=== PATIENT | female | born 1980 | race American Indian/Alaskan Native ===

== ENCOUNTER 2016-12-28 14:34 | Emergency (ER) | payer OTHER ==
--- NOTE | 2016-12-28 14:56 | C.PDOC ---
History Of Present Illness <Loan[place] - Last Filed: 12/29/16 01:22> <Anibal Oliveros - Last Filed: 12/29/16 12:21> 36 y/o female presents to the ED for psychiatry evaluation. The patient contacted a credit card community service representative and stated " she wanted to kill herself ".The patient also reports "saying something she should not have done." at bedside, pt denies hi, hallucinations, fevers, cough, n/v/d, urrinary changes, or medical complaints. (Anibal Oliveros) <Gail Cates - Last Filed: 12/29/16 01:22> History Per: Patient History/Exam Limitations: no limitations Onset/Duration Of Symptoms: Hrs Current Symptoms Are (Timing): Still Present <Anibal Oliveros - Last Filed: 12/29/16 12:21> Time Seen by Provider: 12/28/16 14:36 Chief Complaint (Nursing): Psychiatric Evaluation Past Medical History Reviewed: Historical Data, Nursing Documentation, Vital Signs Surgical History: No Surg Hx Family History: States: No Known Family Hx - Social History Hx Alcohol Use: No Hx Substance Use: No - Immunization History Hx Tetanus Toxoid Vaccination: Yes Hx Influenza Vaccination: No Hx Pneumococcal Vaccination: No <Anibal Oliveros - Last Filed: 12/29/16 12:21> Vital Signs: Last Vital Signs Temp 98 F 12/28/16 17:58 Pulse 84 12/29/16 01:37 Resp 16 12/29/16 01:37 BP 132/75 12/29/16 01:37 Pulse Ox 98 12/29/16 01:37 Review Of Systems Except As Marked, All Systems Reviewed And Found Negative. Constitutional: Negative for: Fever, Chills Cardiovascular: Negative for: Chest Pain Respiratory: Negative for: Shortness of Breath Gastrointestinal: Negative for: Nausea, Vomiting <Anibal Oliveros - Last Filed: 12/29/16 12:21> Physical Exam - Physical Exam Appears: Non-toxic, No Acute Distress Skin: Warm, Dry Head: Atraumatic, Normacephalic Eye(s): bilateral: Normal Inspection Oral Mucosa: Moist Neck: Supple Chest: Symmetrical Cardiovascular: Rhythm Regular Respiratory: Normal Breath Sounds, No Rales, No Rhonchi, No Wheezing Gastrointestinal/Abdominal: Soft, Tenderness, No Guarding, No Rebound Extremity: Normal ROM, Capillary Refill (<2sec.) Neurological/Psych: Oriented x3, Normal Speech, Normal Cognition Gait: Steady <Anibal Oliveros - Last Filed: 12/29/16 12:21> ED Course And Treatment - Laboratory Results Result Diagrams: 12/28/16 16:11 12/28/16 16:11 Pulse Ox Interpretation: Normal Progress Note: pt was cleared for discharge by dr goodwin Reevaluation Time: 01:22 Reassessment Condition: Improved <Gail Cates - Last Filed: 12/29/16 01:22> - Laboratory Results Result Diagrams: 12/28/16 16:11 12/28/16 16:11 ECG Interpretation: Normal (sinus arrhythmia rate 85) O2 Sat by Pulse Oximetry: 96 (RA) Progress Note: The patient was evaluated by Crisis. The patient is medically cleared by Crisis. The patient is resting comfortably and is in no acute distress. The patient is advised to have a follow with [facility] RESPIRATORY THERAPIST within 1-2 days. <Anibal Oliveros - Last Filed: 12/29/16 12:21> Medical Decision Making <Gail Cates - Last Filed: 12/29/16 01:22> <Anibal Oliveros - Last Filed: 12/29/16 12:21> Medical Decision Making: pending crisis eval. 200: during evaluation by grease machine worker, pt became increasingly agitated, refusing to speak to grease machine worker. spoke at bedside with patient. pt again became increasingly agitated. extensive discussion bedside to verbally deescalate. pt not compliant does not consent to search and changing into gown. grease machine worker requests 1 to 1 and labs for medical clearance. refuses to be searched and cooperate. pt sedated for safety of staff and patient. 400: pt reassesed: sleeping in nad 600: pt reassessed: sleeping in nad. not interviewable as per grease machine worker 1100: pt more arousable. pending crisis eval 1200: pt pending crisis eval. 100: pt endorsed to shift production supervisor pending crisi eval and final dispo (Anibal Oliveros ) Disposition Counseled Patient/Family Regarding: Studies Performed, Diagnosis, Need For Followup - Disposition Disposition Time: 01:00 <Gail Cates - Last Filed: 12/29/16 01:22> <Anibal Oliveros - Last Filed: 12/29/16 12:21> - Disposition Referrals: [facility] [Outside] Disposition: HOME/ ROUTINE Condition: FAIR Instructions: Stress (ED), Anxiety (ED) Forms: [facility] ([place]) - Clinical Impression Clinical Impression: Adjustment disorder, Mixed disturbance of conduct and emotions <Gail Cates - Last Filed: 12/29/16 01:22> - Scribe Statement The provider has reviewed the documentation as recorded by the Scribe <Anibal Oliveros - Last Filed: 12/29/16 12:21> - Scribe Statement Tea Manzano All medical record entries made by the Scribe were at my direction and personally dictated by me. I have reviewed the chart and agree that the record accurately reflects my personal performance of the history, physical exam, medical decision making, and the department course for this patient. I have also personally directed, reviewed, and agree with the discharge instructions and disposition. (Anibal Oliveros)
[2016-12-28 16:23] LABS: BASO % 0.4 % (0.0-2.0); EOS # 0.1 K/uL (0.0-0.7); EOS % 1.3 % (0.0-4.0); HEMATOCRIT 38.6 % (34.0-47.0); LYMPH # 2.2 K/uL (1.0-4.3); MEAN CELL VOLUME 72.1 fL (81.0-99.0); MEAN CORPUSCULAR HEMOGLOBIN 23.1 pg (27.0-31.0); MEAN PLATELET VOLUME 8.8 fL (7.2-11.7); MONO # 0.5 K/uL (0.0-0.8); MONO % 5.4 % (0.0-10.0); RED CELL DISTRIBUTION WIDTH 20.3 % (11.5-14.5)
[2016-12-28 16:34] LABS: ALB/GLOB RATIO 1.2 (1.0-2.1); ALCOHOL SERUM < 10 mg/dl (0-10); ALKALINE PHOSPHATASE 59 U/L (38-126); ALT/SGPT 18 U/L (9-52); AST/SGOT 24 U/L (14-36); BILIRUBIN,TOTAL 0.7 mg/dL (0.2-1.3); BLOOD UREA NITROGEN 9 mg/dL (7-17); CALCIUM 9.4 mg/dl (8.6-10.4); CARBON DIOXIDE 21 mmol/L (22-30); CHLORIDE 102 mmol/L (98-107); GFR AFRICAN-AMERICAN > 60; GLUCOSE,RANDOM 119 mg/dL (65-105); POTASSIUM 3.1 mmol/L (3.6-5.2); SODIUM 143 mmol/L (132-148); TOTAL PROTEIN 8.3 g/dL (6.3-8.3)
--- NOTE | 2016-12-28 16:36 | RAD ---
HISTORY: pysch COMPARISON: No prior. FINDINGS: LUNGS: No active pulmonary disease. PLEURA: No significant pleural effusion identified, no pneumothorax apparent. CARDIOVASCULAR: Normal. OSSEOUS STRUCTURES: No significant abnormalities. VISUALIZED UPPER ABDOMEN: Normal. OTHER FINDINGS: None. IMPRESSION: No active disease.
[2016-12-28] MEDS ORDERED: Potassium Chloride 20 mEq ER Tab PO STA (16:44)
[2016-12-28] MEDS ORDERED: Potassium Chloride 20 mEq ER Tab PO ONE (16:56)
[2016-12-28 17:53] LABS: RBC URINE < 1 /hpf (0-3); URINE BILIRUBIN NEGATIVE (NEGATIVE); URINE BLOOD NEGATIVE (NEGATIVE); URINE COLOR Yellow (YELLOW); URINE GLUCOSE (UA) NORMAL (Normal); URINE KETONE 1+ mg/dL (NEGATIVE); URINE LEUKOCYTE ESTERASE NEG Leu/uL (Negative); URINE PROTEIN NEGATIVE (NEGATIVE); URINE UROBILINOGEN NORMAL mg/dL (0.2-1.0); WBC URINE 1 /hpf (0-5)
[2016-12-28 17:59] VITALS: TEMP 98
[2016-12-29 01:38] VITALS: BP 132/75; PULSE 84; RESP 16
[2016-12-29 12:21] VITALS: O2SAT 96
--- NOTE | 2016-12-31 17:21 | CARD ---
APPROVED REPORT EKG Measurement Heart [id number] <Conclusion> Sinus rhythm with marked sinus arrhythmia Otherwise normal ECG
== END 2016-12-29 01:37 | disposition home or self-care (01) ==
LOC: C.ER 14:34
DX: F43.25 Adjustment disorder with mixed disturbance of emotions and conduct (principal); E87.6 Hypokalemia
CPT/HCPCS: 71010; 80053; 81001; 84703; 85025; 93005; 96372; 99284; G0480; J2060; J3486